=== PATIENT | female | born 1945 | race Caucasian/White ===

== ENCOUNTER 2018-02-12 20:16 | Emergency (ER) | payer MEDICARE, BC ==
--- NOTE | 2018-02-12 20:29 | EDM.PDOC ---
ED HPI GENERAL MEDICAL PROBLEM - General Chief Complaint: Respiratory Problem Stated Complaint: AMBULANCE-DIFFICULTY BREATHING Time Seen by Provider: 02/12/18 20:25 Source of Information: Reports: Patient History Limitations: Reports: No Limitations - History of Present Illness INITIAL COMMENTS - FREE TEXT/NARRATIVE: c/o increase sob today, been having sob for long time gives h/o copd lung cancer had chemo&radiation @ [facility] and pending more w/u before continuing more Tx. but states everytime she goes to 'romy her sob is better and it seems problem only occurs at home. not on home O2 but thinks she needs it. also h/o aortic aneurysm see surgeon @ [facility]. - Related Data Allergies Allergy/AdvReac Type Severity Reaction Status Date / Time Penicillins Allergy Hives Verified 02/12/18 20:26 Home Meds: Home Meds Acetaminophen [Tylenol Extra Strength] 1,000 mg PO Q8H PRN 01/22/16 [History] Albuterol/Ipratropium [Combivent Respimat] 1 puff INH QID 01/22/16 [History] Allopurinol [Zyloprim] 100 mg PO DAILY 01/22/16 [History] Aspirin [Halfprin] 81 mg PO DAILY 01/22/16 [History] Atenolol 25 mg PO DAILY 01/22/16 [History] Budesonide/Formoterol [Symbicort 80-4.5 MCG] 2 puff INH BID 01/22/16 [History] Calcium Carbonate/Vitamin D3 [Os-Jason 500+D] 1 tab PO DAILY 01/22/16 [History] LORazepam [Ativan] 0.5 mg PO Q6H PRN 01/22/16 [History] Levothyroxine [Synthroid] 100 mcg PO DAILY 01/22/16 [History] Lisinopril [Prinivil] 40 mg PO DAILY 01/22/16 [History] Melatonin 3 mg PO BEDTIME 01/22/16 [History] Multivitamin [Multi-Day Vitamins] 1 tab PO DAILY 01/22/16 [History] Sertraline HCl [Zoloft] 200 mg PO DAILY 01/22/16 [History] Simvastatin [Zocor] 40 mg PO DAILY 01/22/16 [History] amLODIPine [Norvasc] 5 mg PO DAILY 01/22/16 [History] atorvaSTATin Calcium [Atorvastatin Calcium] 10 mg PO DAILY 01/22/16 [History] buPROPion [Wellbutrin SR] 150 mg PO DAILY 01/22/16 [History] metFORMIN [Glucophage] 1 tab PO BIDMEALS 01/22/16 [History] traMADol [Ultram] 1 - 2 tab PO Q6H PRN 01/22/16 [History] Past Medical History HEENT History: Reports: Cataract, Impaired Vision Cardiovascular History: Reports: High Cholesterol, Hypertension, Other (See Below) Other Cardiovascular History: CHRONIC VENOUS INSUFFICENCY Respiratory History: Reports: COPD, Pneumonia, Recurrent, Other (See Below) Other Respiratory History: ANEURYSMAL DILATATION OF THE THORACIC AORTA- FOLLOWS PULMONOLOGY IN [place] Gastrointestinal History: Reports: Hemorrhoids Genitourinary History: Reports: None BUSINESS AFFAIRS MANAGER History: Reports: Prolapsed Uterus, Other (See Below) Other OB/BYN History: HX OF PESSARY Musculoskeletal History: Reports: Back Pain, Chronic, Gout, Other (See Below) Other Musculoskeletal History: LEFT LOWER RADICULAR SYMPTOMS; DDD LUMBAR Neurological History: Reports: None Psychiatric History: Reports: Anxiety, Bipolar, Depression, Other (See Below) Other Psychiatric History: PATIENT DENIES BIPOLAR DX Endocrine/Metabolic History: Reports: Diabetes, Type II, Hypothyroidism, Osteopenia Hematologic History: Reports: None, Other (See Below) Immunologic History: Reports: None Oncologic (Cancer) History: Reports: None Dermatologic History: Reports: None - Infectious Disease History Infectious Disease History: Reports: Chicken Pox, Measles - Past Surgical History Head Surgeries/Procedures: Reports: None GI Surgical History: Reports: Appendectomy, Colonoscopy Female Surgical History: Reports: Breast Biopsy, Tubal Ligation Neurological Surgical History: Reports: None Musculoskeletal Surgical History: Reports: Other (See Below) Oncologic Surgical History: Reports: Biopsy of Breast Dermatological Surgical History: Reports: None Social & Family History - Tobacco Use Smoking Status *Q: Former Smoker Used Tobacco, but Quit: No - Caffeine Use Caffeine Use: Reports: Coffee, Soda, Tea - Recreational Drug Use Recreational Drug Use: No ED ROS GENERAL - Review of Systems Review Of Systems: ROS reveals no pertinent complaints other than HPI. ED EXAM, GENERAL - Physical Exam Exam: See Below Exam Limited By: No Limitations General Appearance: Alert, WD/WN, Anxious Ears: Hearing Grossly Normal Throat/Mouth: Normal Voice, No Airway Compromise Head: Atraumatic Neck: Non-Tender, Full Range of Motion Respiratory/Chest: No Accessory Muscle Use, Rhonchi, Wheezing. No: Decreased Breath Sounds Cardiovascular: Regular Rate, Rhythm GI/Abdominal: Soft, Non-Tender Extremities: No Pedal Edema Psychiatric: Anxious Skin Exam: Warm, Dry, Normal Color Lymphatic: No Adenopathy Course - Vital Signs Last Recorded V/S: Last Vital Signs Temp 36.2 C 02/12/18 20:58 Pulse 89 02/12/18 20:59 Resp 19 02/12/18 20:59 BP 91/36 L 02/12/18 20:58 Pulse Ox 98 02/12/18 20:59 - Orders/Labs/Meds Orders: Active Orders 24 hr Category Date Time Status EKG Documentation Completion [RC] STAT Care 02/12/18 20:23 Active RT Aerosol Therapy [RC] ASDIRECTED Care 02/12/18 20:49 Active Labs: Laboratory Tests 02/12/18 02/12/18 02/12/18 Range/Units 20:59 20:59 20:59 WBC 11.0 H (5.0-10.0) 10^3/uL RBC 2.94 L (4.2-5.4) 10^6/uL Hgb 7.9 L (12.0-16.0) g/dL Hct 25.6 L (37.0-47.0) % MCV 87.1 (80-100) fL MCH 26.9 L (27.0-34.0) pg MCHC 30.9 L (33.0-35.0) g/dL Plt Count 132 L (150-450) 10^3/uL Neut % (Auto) 90.0 H (42.2-75.2) % Lymph % (Auto) 5.0 L (20.5-50.1) % [place] % (Auto) 4.7 (2-8) % Eos % (Auto) 0.3 L (1.0-3.0) % Baso % (Auto) 0.0 (0.0-1.0) % PT (9.0-12.0) SEC INR (0.9-1.2) APTT (22.0-34.0) SEC D-Dimer, Quantitative 3950 H (0-400) ng/mL ABG pH (7.35-7.45) ABG pCO2 (35-45) mmHg ABG pO2 (70-100) mmHg ABG HCO3 (22-26) mmol/L ABG O2 Saturation (95-100) % ABG Base Excess ((-2)-(+3)) mmol/L O2 Delivery Device Oxygen Flow Rate Sodium 133 L (135-145) mmol/L Potassium 4.4 (3.6-5.0) mmol/L Chloride 92 L (101-111) mmol/L Carbon Dioxide 25.0 (21.0-31.0) mmol/L Anion Gap 20.4 BUN 40 H (7-18) mg/dL Creatinine 0.7 (0.6-1.3) mg/dL Est Cr Clr Drug Dosing 56.61 mL/min Estimated GFR (MDRD) > 60 BUN/Creatinine Ratio 57.14 Glucose 120 H (74-105) mg/dL Lactic Acid (0.5-2.2) mmol/L Calcium 8.6 (8.4-10.2) mg/dl Total Bilirubin 0.4 (0.2-1.0) mg/dL AST 149 H (10-42) IU/L ALT 117 H (10-60) IU/L Alkaline Phosphatase 196 H (42-121) IU/L Troponin I 0.06 H* (0.00-0.02) ng/ml B-Natriuretic Peptide 2660 H (0-100) pg/ml Total Protein 7.1 (6.7-8.2) g/dl Albumin 2.5 L (3.2-5.5) g/dl Globulin 4.6 Albumin/Globulin Ratio 0.54 02/12/18 02/12/18 02/12/18 Range/Units 20:59 20:59 22:21 WBC (5.0-10.0) 10^3/uL RBC (4.2-5.4) 10^6/uL Hgb (12.0-16.0) g/dL Hct (37.0-47.0) % MCV (80-100) fL MCH (27.0-34.0) pg MCHC (33.0-35.0) g/dL Plt Count (150-450) 10^3/uL Neut % (Auto) (42.2-75.2) % Lymph % (Auto) (20.5-50.1) % [place] % (Auto) (2-8) % Eos % (Auto) (1.0-3.0) % Baso % (Auto) (0.0-1.0) % PT 11.1 (9.0-12.0) SEC INR 1.1 (0.9-1.2) APTT 21.5 L (22.0-34.0) SEC D-Dimer, Quantitative (0-400) ng/mL ABG pH 7.47 H (7.35-7.45) ABG pCO2 41 (35-45) mmHg ABG pO2 72 (70-100) mmHg ABG HCO3 28.8 H (22-26) mmol/L ABG O2 Saturation 95 (95-100) % ABG Base Excess 5 H ((-2)-(+3)) mmol/L O2 Delivery Device Nasal cannula Oxygen Flow Rate 5 Sodium (135-145) mmol/L Potassium (3.6-5.0) mmol/L Chloride (101-111) mmol/L Carbon Dioxide (21.0-31.0) mmol/L Anion Gap BUN (7-18) mg/dL Creatinine (0.6-1.3) mg/dL Est Cr Clr Drug Dosing mL/min Estimated GFR (MDRD) BUN/Creatinine Ratio Glucose (74-105) mg/dL Lactic Acid 7.3 H (0.5-2.2) mmol/L Calcium (8.4-10.2) mg/dl Total Bilirubin (0.2-1.0) mg/dL AST (10-42) IU/L ALT (10-60) IU/L Alkaline Phosphatase (42-121) IU/L Troponin I (0.00-0.02) ng/ml B-Natriuretic Peptide (0-100) pg/ml Total Protein (6.7-8.2) g/dl Albumin (3.2-5.5) g/dl Globulin Albumin/Globulin Ratio Meds: Medications Discontinued Medications Generic Name Dose Route Start Last Admin Trade Name Freq PRN Reason Stop Dose Admin Albuterol/Ipratropium 3 ml 02/12/18 20:49 02/12/18 20:54 Duoneb 3.0-0.5 Mg/3 Ml NEB 02/12/18 20:50 3 ml ONETIME ONE Administration Aspirin 324 mg 02/12/18 21:56 02/12/18 22:04 Aspirin PO 02/12/18 21:57 324 mg ONETIME ONE Administration Furosemide 40 mg 02/12/18 21:56 02/12/18 22:04 Lasix IVPUSH 02/12/18 21:57 40 mg NOW ONE Administration Heparin Sodium (Porcine) 4,000 units 02/12/18 22:26 Heparin Sodium IVPUSH 02/12/18 22:27 ONETIME ONE Lorazepam 0.5 mg 02/12/18 23:14 Ativan IVPUSH 02/12/18 23:15 ONETIME ONE - Re-Assessments/Exams Free Text/Narrative Re-Assessment/Exam: 02/12/18 23:[address] Ibrahim @ 22:15 who kindly accepted pt. GF recalled after further eval' req' Intenfisis to be consulted. pt in CPR arrived @ ER unable to contact. case discussed with Dr Colvin @ 23:05 after CPR pt situation resolved. who kindly accepted pt. Departure - Departure Time of Disposition: 23:19 Disposition: DC/Tfer to Acute Hospital 02 Condition: Fair Clinical Impression: Congenital heart disease in adult, Elevated troponin, Elevated brain natriuretic peptide (BNP) level, Elevated d-dimer, Elevated lactic acid level Dyspnea Qualifiers: Dyspnea type: unspecified Qualified Code(s): R06.00 - Dyspnea, unspecified Pneumonia Qualifiers: Pneumonia type: due to unspecified organism Laterality: bilateral Lung location : lower lobe of lung Qualified Code(s): J18.1 - Lobar pneumonia, unspecified organism - Discharge Information Forms: ED Department Discharge, Interfacility Transfer EMTALA - My Orders Last 24 Hours: My Active Orders 02/12/18 20:23 EKG Documentation Completion [RC] STAT 02/12/18 20:49 RT Aerosol Therapy [RC] ASDIRECTED - Assessment/Plan Last 24 Hours: My Active Orders 02/12/18 20:23 EKG Documentation Completion [RC] STAT 02/12/18 20:49 RT Aerosol Therapy [RC] ASDIRECTED
[2018-02-12] MEDS ORDERED: Albuterol/Ipratropium 3.0-0.5 MG/3 ML Neb Soln NEB ONE (20:49)
[2018-02-12 20:58] VITALS: BP 91/36
[2018-02-12 21:27] LABS: CHLORIDE,CL 92 mmol/L (101-111); SODIUM,NA 133 mmol/L (135-145)
[2018-02-12] MEDS ORDERED: Furosemide 40 MG/4 ML VIAL IVPUSH ONE (21:56)
[2018-02-12] MEDS ORDERED: Aspirin 81 MG Tab.Chew PO ONE (21:56)
[2018-02-12] MEDS ORDERED: Heparin Sodium 5,000 Units/ML Vial IVPUSH ONE (22:26)
[2018-02-12 22:34] LABS: BASE EXCESS ARTERIAL 5 mmol/L ((-2)-(+3)); BICARBONATE,ARTERIAL 28.8 mmol/L (22-26); O2 DELIVERY DEVICE NASAL CANNULA; O2 SATURATION ARTERIAL 95 % (95-100); PCO2 ARTERIAL 41 mmHg (35-45); PO2 ARTERIAL 72 mmHg (70-100)
[2018-02-12 22:37] LABS: O2 FLOW RATE 5
[2018-02-12] MEDS ORDERED: LORazepam 2 MG/ML Syringe IVPUSH ONE (23:14)
== END 2018-02-12 23:50 ==
LOC: DL.ED 20:16
DX: Q24.9 Congenital malformation of heart, unspecified (principal); J18.9 Pneumonia, unspecified organism; R79.89 Other specified abnormal findings of blood chemistry; E78.00 Pure hypercholesterolemia, unspecified; I10 Essential (primary) hypertension; E11.9 Type 2 diabetes mellitus without complications; E03.9 Hypothyroidism, unspecified; Z88.0 Allergy status to penicillin; Z79.82 Long term (current) use of aspirin; Z79.899 Other long term (current) drug therapy; Z87.891 Personal history of nicotine dependence
CPT/HCPCS: 36415; 36600; 71045; 80053; 82803; 83605; 83880; 84484; 85025; 85379; 85610; 85730; 93005; 93010; 96374; 96375; 99284; 99285; A9270-GY; J1940; J2060